=== PATIENT | male | born 1990 | race Hispanic/Latino ===

== ENCOUNTER 2017-08-03 23:00 | Inpatient (IN) | payer SELFPAY ==
[~2017-08-03 23:00] MED LIST: ISOVUE-370 76%-LOCM 1 ML ONE
[2017-08-03 23:41] LABS: #Lymphocytes 0.5 thou/uL (1.20-3.40); #Monocytes 0.7 thou/uL (0.11-0.59); #Neutrophils 4.6 thou/uL (1.40-6.50); %Basophils 0.3 % (0.0-1.0); %Eosinophils 0.1 % (0.0-10.0); %Monocytes 12.3 % (0.0-10.0); Mean Platelet Volume 7.9 fL (7.4-10.4); Red Blood Cell (RBC) Count 4.51 mill/uL (4.70-6.10); White Blood Cell (WBC) Count 5.9 thou/uL (4.8-10.8)
[2017-08-04] MEDS ORDERED: Ondansetron HCl/PF 4 MG/2 ML Vial ONE ×2
[2017-08-04] MEDS ORDERED: Ketorolac Tromethamine 30 MG/ML VIAL ONE
[2017-08-04 00:06] LABS: Lactic Acid - Sepsis 0.8 mmol/L (0.5-2.2)
[2017-08-04 00:07] LABS: ALT (SGPT) 27 U/L (8-55); AST (SGOT) 27 U/L (5-34); Alkaline Phosphatase 110 U/L (40-150); Anion Gap 12 mmol/L (10-20); BUN (Urea Nitrogen) 10 mg/dL (8.9-20.6); Bilirubin, Total 0.6 mg/dL (0.2-1.2); Calc. Creatinine Clearance 0 mL/min (70-130); Calcium 8.7 mg/dL (7.8-10.44); Carbon Dioxide 25 mmol/L (22-29); Chloride 103 mmol/L (98-107); Estimated GFR-MDRD 80; Globulin 3.4 g/dL (2.4-3.5); Protein, Total 7.5 g/dL (6.0-8.3)
[2017-08-04 00:11] LABS: CK (CPK) 166 U/L (30-200); Lipase 16 U/L (8-78)
[2017-08-04 00:14] LABS: Bilirubin Negative (Negative); Blood, Urine Moderate (Negative); Glucose, Urine (Dipstick) Negative (Negative); Ketone, Urine 40 mg/dL (Negative); Nitrite Negative (Negative); Protein, Urine (Dipstick) 30 mg/dL (Neg-Trace); Urobilinogen 0.2 mg/dL (0.2-1.0)
[2017-08-04 00:17] LABS: Bacteria/HPF None Seen HPF (None Seen)
[2017-08-04 00:22] LABS: Hyaline Casts/LPF 0-3 HYALINE CAST LPF (0-3 Hyaline); Oval Fat Bodies/HPF None Seen HPF (None Seen); Renal Epithelial None Seen HPF (0-3); Sperm/HPF None Seen HPF (None Seen); Transitional Epithelial NONE SEEN HPF (0-3); Trichomonas/HPF None Seen HPF (None Seen); Yeast-All Forms None Seen HPF (None Seen)
[2017-08-04] MEDS ORDERED: Potassium Chloride 20 MEQ TAB ONE (00:44)
[2017-08-04] MEDS ORDERED: metroNIDAZOLE 500 MG/100 ML BAG ONE (01:01)
[2017-08-04] MEDS ORDERED: Ondansetron ODT 4 MG TAB SL PRN (02:22)
[2017-08-04] MEDS ORDERED: Ondansetron HCl/PF 4 MG/2 ML Vial IVP PRN (02:22)
[2017-08-04] MEDS: D5 1/2 NS w/20 mEq KCL 1,000 ML IV SCH ×2 (02:53→07:16)
[2017-08-04 06:18] VITALS: BMI 26.3
[2017-08-04] MEDS ORDERED: Acetaminophen 325 MG TAB PO PRN (06:38)
[2017-08-04] MEDS ORDERED: Ondansetron ODT 4 MG TAB PO PRN (06:38)
[2017-08-04] MEDS ORDERED: Mag-Al 1200 mg/1200 mg/30 ML UDCUP PO PRN (06:38)
[2017-08-04] MEDS ORDERED: Calcium Carbonate 500 MG ChewTAB PO PRN (06:38)
[2017-08-04 07:12] LABS: Hematocrit 37.4 % (42.0-52.0); Mean Platelet Volume 8.2 fL (7.4-10.4); Red Blood Cell (RBC) Count 4.18 mill/uL (4.70-6.10); White Blood Cell (WBC) Count 5.2 thou/uL (4.8-10.8)
[2017-08-04] MEDS: cefTRIAXone\\ROCEPHIN 1 GM in Sodium Chloride 0.9% 100 ML IVPB SCH (07:16)
[2017-08-04] MEDS: NS 0.9% w/ 20 MEQ KCL 1,000 ML/1,000 ML BAG IV SCH ×2 (07:17→14:19)
[2017-08-04 07:28] LABS: Anion Gap 8 mmol/L (10-20); BUN (Urea Nitrogen) 8 mg/dL (8.9-20.6); Calc. Creatinine Clearance 134 mL/min (70-130); Calcium 8.1 mg/dL (7.8-10.44); Carbon Dioxide 26 mmol/L (22-29); Chloride 106 mmol/L (98-107); Estimated GFR-MDRD Greater than 90; Phosphorus 2.9 mg/dL (2.3-4.7)
[2017-08-04] MEDS: metroNIDAZOLE 500 MG in Premix Bag 1 BAG IVPB SCH ×2 (08:45→15:43)
[2017-08-04] MEDS: Pantoprazole 40 MG VIAL IVP SCH (08:46)
--- NOTE | 2017-08-04 09:09 | CT ---
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 Pt also reports dizziness, fever, n/v/d, and weakness that also started 3 days ago. Pt had surgery 4-5 years ago to r groin area but unsure what type. TECHNIQUE: Axial computed tomography images of the abdomen and pelvis with intravenous contrast. Coronal reformatted images were created and reviewed. CONTRAST: 95 mL of ISOVUE 370 administered intravenously. COMPARISON: No relevant prior studies available. FINDINGS: Lower thorax: No acute findings. ABDOMEN: Liver: There is mild hepatomegaly. There is focal fat in liver adjacent to the falciform ligament. Gallbladder and bile ducts: Unremarkable. No calcified stones. No ductal dilation. Pancreas: Unremarkable. No mass. No ductal dilation. Spleen: There is mild splenomegaly. Adrenals: Unremarkable. No mass. Kidneys and ureters: There is an 11 mm partly exophytic lesion inferior pole left kidney with possib le enhancement but incompletely characterized on this exam. May be more accurately characterized with dedicated CT or MRI renal mass protocol. No hydronephrosis. Stomach and bowel: There is diffuse wall thickening of the colon and rectum may be partly related to underdistention, but cannot exclude pancolitis and proctitis. Appendix: The appendix is unremarkable and seen best on axial image 48 of series 2. PELVIS: Bladder: Unremarkable. No mass. Reproductive: Unremarkable as visualized. ABDOMEN and PELVIS: Intraperitoneal space: Unremarkable. No free air. No significant fluid collection. Bones/joints: No acute fracture. No dislocation. Soft tissues: Unremarkable. Vasculature: Unremarkable. No abdominal aortic aneurysm. Lymph nodes: Unremarkable. No enlarged lymph nodes. IMPRESSION: 1. There is diffuse wall thickening of the colon and rectum may be partly related to underdistention , but cannot exclude pancolitis and proctitis. 2. There is an 11 mm partly exophytic lesion inferior pole left kidney with possible enhancement but incompletely characterized on this exam. May be more accurately characterized with dedicated CT or MRI renal mass protocol. Thank you for allowing us to participate in the care of your patient. Dictated and Authenticated by: Al Lindquist MD 08/04/2017 12:52 AM Central Time ([place] \T\ [place]) FINAL REPORT CT ABDOMEN AND PELVIS WITH CONTRAST: History: Right sided abdomen pain which started 3 days prior to arrival. According to prior notes, henri green has had appendix removed. FINDINGS: There is diffuse submucosal edema throughout the colon. Pancreas is visualized and is normal. There is a 4 mm mass inferior pole left kidney measuring 98 Hounsfield units which is minimally incr eased in size from 2013. No adenopathy. IMPRESSION: 1. Severe pancolitis either infectious or inflammatory. 2. Mildly increase in size of the exophytic mass of the left kidney. This may represent a low grade malignancy. A CT or MRI renal mass protocol is recommended. Code QA. POS: ALYSHA
[2017-08-04 09:28] LABS: Band 48 % (5-11); Neutrophil 16 % (42-75); Reactive Lymphocytes 2 % (0-10)
[2017-08-04] MEDS ORDERED: Morphine Sulfate 2 MG/ML SYRINGE SLOW IVP PRN (09:42)
[2017-08-04] MEDS ORDERED: metroNIDAZOLE 500 MG in Premix Bag 1 BAG IVPB SCH (10:00)
--- NOTE | 2017-08-04 10:07 | HP ---
DATE OF ADMISSION: 08/04/2017 PRIMARY CARE PHYSICIAN: None. CHIEF COMPLAINT: Abdominal discomfort with fever and chills of 3 days duration. HISTORY OF PRESENT ILLNESS: The patient is a 26-year-old male who presented to the emergen cy room with above complaints. Over the last three days, the patient developed gradual worsening of abdominal discomfort along with fever, chills, nausea, vomiting, and diarrhea. He felt generally weak, fatigued. He had several e pisodes of vomiting and diarrhea. Diarrhea was watery and nonbloody. Abdominal pain was mainly per iumbilical in area, more or less constant, associated with movement. No relieving factor reported. He denies any recent travel or sick contacts. No other family members with similar illness. His t emperature at home was 103 associated with chills. In the emergency room, his initial vital signs showed temperature 100.3, respirations 18, pulse of 8 1 with blood pressure of 118/69 with O2 saturation 97% on room air. His CT scan of the abdomen was consistent with possible colitis. He received Levaquin, Flagyl with Zofran, Toradol, IV fluids, and morphine. His potassium was 3.0 for which he received 40 mEq of oral potassium. PAST MEDICAL HISTORY: Reviewed with the patient and none. PAST SURGICAL HISTORY: Right inguinal exploration with right orchiectomy for undescended testes. ALLERGIES: No known drug allergies. CURRENT HOME MEDICATIONS: Reviewed with the patient and none. SOCIAL HISTORY: Patient currently lives at home with his family. No alcohol, tobacco or drug use r eported. FAMILY HISTORY: Negative for inflammatory bowel disease, GI malignancies or heart disease. REVIEW OF SYSTEMS: The following complete review of systems was negative, unless otherwise mentione d in the HPI or below: Constitutional: Weight loss or gain, ability to conduct usual activities. Skin: Rash, itching. Eyes: Double vision, pain. ENT/Mouth: Nose bleeding, neck stiffness, pain, tenderness. Cardiovascular: Palpitations, dyspnea on exertion, orthopnea. Respiratory: Shortness of breath, wheezing, cough, hemoptysis, fever or night sweats. Gastrointestinal: Poor appetite, abdominal pain, heartburn, nausea, vomiting, constipation, or diar major. Genitourinary: Urgency, frequency, dysuria, nocturia. Musculoskeletal: Pain, swelling. Neurologic/Psychiatric: Anxiety, depression. Allergy/Immunologic: Skin rash, bleeding tendency. PHYSICAL EXAMINATION: VITAL SIGNS: As discussed above. GENERAL: A 26-year-old male, ill appearing. HEENT: Head is atraumatic, normocephalic, sclerae are anicteric. Moist mucous membranes. No oral lesion. NECK: Supple, no JVD appreciated. No carotid bruit. LUNGS: Clear to auscultation bilaterally. HEART: S1 and S2 present. Regular rate and rhythm. No murmur, rubs, or gallops appreciated. ABDOMEN: Soft. There was diffuse tenderness mainly over the periumbilical area. There was volunta ry guarding. Bowel sounds were present. EXTREMITIES: No edema or calf tenderness. NEUROLOGIC: Grossly nonfocal, moves all four extremities. PSYCHIATRY: Alert, awake, oriented x3. SKIN: Warm and dry. LYMPH NODES: No palpable lymph nodes in the neck. PERIPHERAL VASCULAR: Radial pulses palpable bilaterally. MUSCULOSKELETAL: No joint swelling or tenderness. LABORATORY DATA AND X-RAY FINDINGS: 1. CBC showed WBC 5.9 with hemoglobin 13.8 with left shift. 2. Potassium 3.0 with BUN 10, creatinine 1.12. 3. CRP of 8.5 and lactic acid was 0.8. 4. Urinalysis showed specific gravity 1.037. 5. CT scan of the abdomen and pelvis by my review as discussed above. IMPRESSION: 1. Sepsis secondary to colitis. 2. Colitis suspected infectious. Inflammatory bowel disease appears to be less likely since his sy mptoms are acute in onset. 3. Hypokalemia. 4. An 11-mm partly exophytic lesion in the inferior pole of the left kidney. An outpatient followu p was recommended by the radiologist. 5. Dehydration. 6. Anemia, suspected chronic. 7. Generalized weakness with fatigue secondary to #1. PLAN: The patient will be monitored on the medical floor. We will replace electrolytes. Continue Flagyl. We will start him on ceftriaxone. Consult Gastroenterology. Clear liquid diet. Vitals q. 4. Orthostatics q.a.m. Patient was advised to ambulate in the hallway 3-4 times a day. DVT prophy laxis with SCDs. We will send stool sample to rule out infectious etiology. The patient will requi re 2-3 days for stabilization.
--- NOTE | 2017-08-04 12:57 | CON ---
DATE OF CONSULTATION: 08/04/2017 REFERRING PHYSICIAN: Dr. Anthony Schwarz REASON FOR CONSULTATION: Abdominal pain, nausea, vomiting and diarrhea. HISTORY OF PRESENT ILLNESS: Mr. Joshua Araya is a 26-year-old male hospitalized last night with abdominal cramping, nausea, vomiting and diarrhea. The patient's abdominal pain began 3 days ago. The pain is cramping in nature and is diffuse. He has no fever or chills. He has nausea and vomiting and with severe diarrhea. The symptoms are persistent. He came to the ER and had abd ominal CAT scan. The CAT scan shows diffuse colitis. The patient admitted to the hospital because of the above reason. The patient appears comfortable at the present time. However, he continues ab dominal cramping intermittently and also has nausea. He has had 2 episodes of vomiting today. He i s on a clear liquid diet. He has had no stool today. The patient is a very healthy young [place] male with no prior history of medical illness. There is no family history of IBD. There is n o prior history of any diarrhea, abdominal cramping, etc. The patient denies any recent travel outs [place] the country. There was no recent antibiotic intake. He has no other relevant history. At the present time, he is on morphine, pantoprazole, Zofran, levofloxacin and metronidazole. ALLERGIES: None. SOCIAL HISTORY: The patient is . He does not smoke or drink alcohol. MEDICAL ILLNESSES: None. SURGERIES: Right inguinal hernia repair in the past. FAMILY HISTORY: Unremarkable. MEDICATIONS: List reviewed. REVIEW OF SYSTEMS: Totally unremarkable except for abdominal cramping, nausea, vomiting, and diarrh ea. PHYSICAL EXAMINATION: GENERAL: The patient is thin built, appears comfortable, in no acute distress. VITAL SIGNS: His vital signs are stable. He is afebrile. Pulse is 62, blood pressure is 93/58. HEENT: Conjunctivae clear. NECK: Supple. No adenitis or thyromegaly noted. CARDIOVASCULAR: First and second heart sounds normal. LUNGS: Clear to auscultation. ABDOMEN: Soft to palpate. Abdomen is nondistended. He is predominantly tender over the right colo n area. He is also minimally tender over the epigastric area and periumbilical area. There is no r ebound or guarding. Bowel sounds normal. EXTREMITIES: Reveal no edema. LABORATORY: Shows normal CBC. He has no leukocytosis. WBC 5200, hemoglobin 13, hematocrit 37.4, M CV 18.4, platelet count is low at 71,000. His polymorphs 78, bands 48%, lymphocytes 9. Serum chemi stries show sodium 136, potassium 4.1, chloride 106, bicarbonate 26, BUN is 8, creatinine 0.8, gluco se 144, calcium 8.1, phosphorus 2.9. C-reactive protein 8.50. Abdominal CAT scan shows diffuse col itis on CAT scan. CLINICAL IMPRESSION: A 26-year-old male with abdominal cramping, nausea, vomiting an d diarrhea. The symptoms are most likely infectious colitis. He has no prior history of any diarrh eal illness. RECOMMENDATIONS: Pain medication, IV antibiotics and IV fluids. I do not see any reason for a colo noscopy, I believe his symptoms are most likely infectious colitis.
[2017-08-04] MEDS: Ondansetron HCl/PF 4 MG/2 ML Vial IVP PRN (17:08)
[2017-08-05] MEDS: NS 0.9% w/ 20 MEQ KCL 1,000 ML/1,000 ML BAG IV SCH ×4 (00:23→16:41)
[2017-08-05] MEDS: metroNIDAZOLE 500 MG in Premix Bag 1 BAG IVPB SCH ×3 (00:23→16:38)
[2017-08-05 05:49] LABS: Anion Gap 10 mmol/L (10-20); BUN (Urea Nitrogen) 4 mg/dL (8.9-20.6); Calc. Creatinine Clearance 124 mL/min (70-130); Calcium 8.3 mg/dL (7.8-10.44); Carbon Dioxide 22 mmol/L (22-29); Chloride 109 mmol/L (98-107); Estimated GFR-MDRD Greater than 90
[2017-08-05 06:40] LABS: Band 13 % (5-11); Hematocrit 39.4 % (42.0-52.0); Mean Platelet Volume 8.4 fL (7.4-10.4); Myelocyte 1 % (0-0); Neutrophil 29 % (42-75); Reactive Lymphocytes 8 % (0-10); Red Blood Cell (RBC) Count 4.29 mill/uL (4.70-6.10); White Blood Cell (WBC) Count 4.9 thou/uL (4.8-10.8)
[2017-08-05] MEDS: cefTRIAXone\\ROCEPHIN 1 GM in Sodium Chloride 0.9% 100 ML IVPB SCH (06:43)
[2017-08-05] MEDS: Pantoprazole 40 MG VIAL IVP SCH (07:54)
--- NOTE | 2017-08-05 14:12 | PRG ---
DATE OF SERVICE: 08/05/2017 HISTORY OF PRESENT ILLNESS: This is a 26-year-old male with abdominal pain, nausea, vomiting, and diarrhea. An abdominal CAT scan showed diffuse colitis. He is on IV antibiotics. He had no stool yesterday, but he only had 1 stool today. The stool was watery. He had no more nause a and no more vomiting. He is having is tolerating clear liquid diet. PHYSICAL EXAMINATION: GENERAL: Appears comfortable. VITAL SIGNS: Stable, afebrile. Pulse is 86, blood pressure 92/55. CARDIOVASCULAR: First and second heart sounds normal. LUNGS: Clear to auscultation. ABDOMEN: Soft to palpate. Abdomen is less tender compared to yesterday. There is no rebound or gu arding. RECOMMENDATION: 1. Advance diet to a regular diet later on today. 2. Continue antibiotics. 3. If he does well on regular diet without abdominal pain, nausea, and vomiting, patient can be dis charged home on antibiotics in next 24 hours.
--- NOTE | 2017-08-05 14:18 | PDOC.PN ---
- Subjective Encounter Start Date: 08/05/17 Encounter Start Time: 10:20 Subjective: diarrhea is better with only 2 stools so far from last night -: tolerating liq diet -: no nausea - Objective Resuscitation Status: Resuscitation Status FULL:Full Resuscitation MAR Reviewed: Yes Vital Signs & Weight: Vital Signs (12 hours) Temp Pulse Resp BP Pulse Ox 08/05/17 12:00 97.8 F 54 L 18 106/70 98 08/05/17 08:00 97.9 F 86 18 92/55 L 95 08/05/17 04:00 97.9 F 48 L 16 94/51 L 98 Weight Admit Weight 163 lb Weight 163 lb I&O: 08/04/17 08/05/17 08/06/17 06:59 06:59 06:59 Intake Total 1475 Balance 1475 Result Diagrams: 08/05/17 04:30 08/05/17 04:30 Phys Exam - Physical Examination HEENT: PERRLA, moist MMs Neck: no JVD, supple Respiratory: no wheezing, no rales Cardiovascular: RRR, no significant murmur Gastrointestinal: soft, non-tender, no distention, positive bowel sounds Musculoskeletal: no edema, pulses present Neurological: non-focal, moves all 4 limbs Psychiatric: A&O x 3 Dx/Plan (1) Gastroenteritis/colitis, infectious Code(s): A09 - INFECTIOUS GASTROENTERITIS AND COLITIS, UNSPECIFIED Status: Acute (2) Chronic anemia Code(s): D64.9 - ANEMIA, UNSPECIFIED Status: Chronic - Plan stool studies pending, HIV is -ve -: is on ceftriaxone and flagyl -: encourage po intake -: may advance diet per GI advice -: has left exophytic mass which has increased in size, urology opinion * . Review of Systems - Medications/Allergies Allergies/Adverse Reactions: Allergies Allergy/AdvReac Type Severity Reaction Status Date / Time No Known Allergies Allergy Verified 08/04/17 02:38 Medications: Current Medications Acetaminophen (Tylenol) 650 mg PO Q4H PRN PRN Reason: Headache/Fever or Pain Al Hydroxide/Mg Hydroxide (Maalox) 30 ml PO Q6H PRN PRN Reason: Heartburn or Indigestion Calcium Carbonate (Tums) 1,000 mg PO Q4H PRN PRN Reason: Heartburn or Indigestion Potassium Chloride/Sodium Chloride (Ns 0.9% W/ 20 Meq Kcl) 1,000 ml in 1,000 mls @ 125 mls/hr IV .Q8H REPLACED BY [facility] Last Admin: 08/05/17 02:21 Dose: 1,000 mls Ceftriaxone Sodium 1 gm/ (Sodium Chloride) 100 mls @ 200 mls/hr IVPB Q24HR REPLACED BY [facility] Last Admin: 08/05/17 06:43 Dose: 100 mls Metronidazole 500 mg/ Device 100 mls @ 100 mls/hr IVPB Q8H REPLACED BY [facility] Last Admin: 08/05/17 07:55 Dose: 100 mls Ondansetron HCl (Zofran Odt) 4 mg PO Q6H PRN PRN Reason: Nausea/Vomiting Ondansetron HCl (Zofran) 4 mg IVP Q6H PRN PRN Reason: Nausea/Vomiting Last Admin: 08/04/17 17:08 Dose: 4 mg Pantoprazole Sodium (Protonix) 40 mg IVP DAILY REPLACED BY [facility] Last Admin: 08/05/17 07:54 Dose: 40 mg Sodium Chloride (Flush - Normal Saline) 10 ml IVF Q12HR REPLACED BY [facility] Last Admin: 08/05/17 07:54 Dose: 10 ml Sodium Chloride (Flush - Normal Saline) 10 ml IVF PRN PRN PRN Reason: Saline Flush
[2017-08-05] MEDS: Morphine Sulfate 2 MG/ML SYRINGE SLOW IVP PRN (17:25)
[2017-08-05] MEDS ORDERED: Loperamide HCl 2 MG CAP PO PRN (19:13)
[2017-08-05] MEDS ORDERED: Loperamide HCl 2 MG CAP PO SCH (19:15)
--- NOTE | 2017-08-05 19:16 | PDOC.EVN ---
Event Note - Event Note Event Note: Pt continues to have diarrhea. Stool studies noted, positive for cryptosporidium antigen. Start nitazoxanide and PRN loperamide.
[2017-08-06] MEDS: metroNIDAZOLE 500 MG in Premix Bag 1 BAG IVPB SCH ×3 (00:07→16:27)
[2017-08-06] MEDS: Morphine Sulfate 2 MG/ML SYRINGE SLOW IVP PRN ×2 (06:03→13:01)
[2017-08-06] MEDS: NS 0.9% w/ 20 MEQ KCL 1,000 ML/1,000 ML BAG IV SCH ×3 (06:03→20:44)
[2017-08-06] MEDS: cefTRIAXone\\ROCEPHIN 1 GM in Sodium Chloride 0.9% 100 ML IVPB SCH (06:03)
[2017-08-06] MEDS: Pantoprazole 40 MG VIAL IVP SCH (08:01)
--- NOTE | 2017-08-06 13:27 | CON ---
DATE OF CONSULTATION: 08/06/2017 REASON FOR CONSULTATION: Left renal mass. REFERRING PHYSICIAN: Dr. Gonzalez HISTORY OF PRESENT ILLNESS: This is a 26-year-old male who was admitted to the hospital af ter presenting to the ER with abdominal discomfort, fever, chills, nausea, diarrhea. His symptoms h ad progressively been getting worse and a CT scan was performed that showed thickening of the colon and rectum, but also demonstrated an 11 mm partially exophytic left lower pole renal mass that was u nclear whether or not it enhanced. From a urinary standpoint, he denies hematuria, dysuria, frequen cy or urgency, any recent weight loss or any previous known history of the renal mass. PAST MEDICAL HISTORY: Negative. PAST SURGICAL HISTORY: Inguinal exploration with right orchiectomy for undescended testicle. ALLERGIES: No known drug allergies. CURRENT HOME MEDICATIONS: None. SOCIAL HISTORY: No alcohol, tobacco or drug use. FAMILY HISTORY: Negative. REVIEW OF SYSTEMS: CONSTITUTIONAL: He has had some fevers. Denies weight loss or weight gain. SKIN: No rash, no itching. EYES: No double vision, no blurred vision. ENT: No congestion or sore throat. CARDIOVASCULAR: No chest pain or rapid heart rate. RESPIRATORY: No cough, wheezing. GASTROINTESTINAL: He has had abdominal pain, nausea, vomiting, and diarrhea. GENITOURINARY: Denies hematuria, dysuria, frequency, urgency. MUSCULOSKELETAL: Denies back or joint pain. NEUROPSYCHIATRIC: Denies anxiety, depression. PHYSICAL EXAMINATION: VITAL SIGNS: Blood pressure 96/59, 98% on room air, respirations 18, pulse 53, temperature 97.9. GENERAL: Alert, in no acute distress. RESPIRATORY: Unlabored respirations. HEAD/NECK: Normocephalic, atraumatic. NECK: No cervical adenopathy. HEART: Regular rate. Benign rest of the exam. LABORATORY DATA: Reviewed. His urine did have some red blood cells and blood in it, but it is also contaminated by squamous epithelial cells. His cryptosporidium was positive. His CT scan was revi ewed and there is an 11 mm exophytic mass, but is unclear whether or not it enhances, it is on the l eft side. ASSESSMENT AND PLAN: Left exophytic renal mass, difficult to characterize. We will get an MRI to f christinther characterize and assess for concern for renal malignancy. Other care per the primary team. ADDENDUM: His MRI has come back and it is suggestive of a hyperdense hemorrhagic cyst and he can follow up on a p.r.n. basis.
--- NOTE | 2017-08-06 13:50 | MRI ---
MRI OF THE ABDOMEN WITHOUT AND WITH CONTRAST: COMPARISON: CT abdomen/pelvis 08/04/17. HISTORY: Left renal lesion seen on prior CT. The patient has a history of right-sided abdominal pain. TECHNIQUE: Multiplanar, multisequence MR images were obtained in the abdomen without and with IV contrast. FINDINGS: There is a 1.1 cm exophytic lesion emanating from the mid portion of the left kidney. This demonstr ates low T2 signal and high T1 signal. No significant enhancement is seen after the administration of contrast when looking at the subtraction images and this is consistent with a hemorrhagic/hyperde nse cyst. This corresponds to the Hounsfield unit value on CT of a hyperdense cyst. No suspicious enhancement is seen of this lesion. The liver, gallbladder, right kidney, adrenal glands, spleen, and pancreas are unremarkable. No abdominal adenopathy is seen. No marrow signal abnormality is present. IMPRESSION: Left renal lesion represents a hyperdense/hemorrhagic cyst. POS: H
--- NOTE | 2017-08-06 15:24 | PDOC.PN ---
- Subjective Encounter Start Date: 08/06/17 Encounter Start Time: 11:20 Subjective: c/o rlq abd pain -: no nausea, had 3 bm's from last night, watery, no mucous or blood - Objective Resuscitation Status: Resuscitation Status FULL:Full Resuscitation MAR Reviewed: Yes Vital Signs & Weight: Vital Signs (12 hours) Temp Pulse Resp BP Pulse Ox 08/06/17 08:00 97.9 F 53 L 18 96/59 L 98 Weight Admit Weight 163 lb Weight 163 lb I&O: 08/05/17 08/06/17 08/07/17 06:59 06:59 06:59 Intake Total 1475 1775 960 Balance 1475 1775 960 Result Diagrams: 08/05/17 04:30 08/05/17 04:30 Phys Exam - Physical Examination HEENT: PERRLA, moist MMs Neck: no JVD, supple Respiratory: no wheezing, no rales Cardiovascular: RRR, no significant murmur Gastrointestinal: soft, no distention, positive bowel sounds rlq tenderness, no guarding or rigidity Musculoskeletal: no edema, pulses present Neurological: non-focal, moves all 4 limbs Psychiatric: A&O x 3 Dx/Plan (1) Gastroenteritis/colitis, infectious Code(s): A09 - INFECTIOUS GASTROENTERITIS AND COLITIS, UNSPECIFIED Status: Acute (2) Chronic anemia Code(s): D64.9 - ANEMIA, UNSPECIFIED Status: Chronic - Plan rlq pain, ct with contrast on admission showed normal appendix -: d/w , will evaluate pt, has bowel thickening in rectum and left col -: MRI abd shows hemorrhagic cyst on left kidney -: is on alinia for cryptosporidium diarrhea -: no other family member has diarrhea * . Review of Systems - Medications/Allergies Allergies/Adverse Reactions: Allergies Allergy/AdvReac Type Severity Reaction Status Date / Time No Known Allergies Allergy Verified 08/04/17 02:38 Medications: Current Medications Acetaminophen (Tylenol) 650 mg PO Q4H PRN PRN Reason: Headache/Fever or Pain Al Hydroxide/Mg Hydroxide (Maalox) 30 ml PO Q6H PRN PRN Reason: Heartburn or Indigestion Calcium Carbonate (Tums) 1,000 mg PO Q4H PRN PRN Reason: Heartburn or Indigestion Potassium Chloride/Sodium Chloride (Ns 0.9% W/ 20 Meq Kcl) 1,000 ml in 1,000 mls @ 125 mls/hr IV .Q8H [facility] Last Admin: 08/06/17 06:03 Dose: 1,000 mls Metronidazole 500 mg/ Device 100 mls @ 100 mls/hr IVPB Q8H [facility] Last Admin: 08/06/17 08:01 Dose: 100 mls Ceftriaxone Sodium 1 gm/ (Sodium Chloride) 100 mls @ 200 mls/hr IVPB 0600 GURDEEP Loperamide HCl (Imodium) 2 mg PO PRN PRN PRN Reason: Diarrhea/Loose Stools Morphine Sulfate (Morphine Sulfate) 2 mg SLOW IVP Q4H PRN PRN Reason: Pain Last Admin: 08/06/17 13:01 Dose: 2 mg Nitazoxanide (Alinia) 500 mg PO BID [facility] Last Admin: 08/06/17 08:09 Dose: 500 mg Ondansetron HCl (Zofran Odt) 4 mg PO Q6H PRN PRN Reason: Nausea/Vomiting Ondansetron HCl (Zofran) 4 mg IVP Q6H PRN PRN Reason: Nausea/Vomiting Last Admin: 08/04/17 17:08 Dose: 4 mg Pantoprazole Sodium (Protonix) 40 mg IVP DAILY [facility] Last Admin: 08/06/17 08:01 Dose: 40 mg Sodium Chloride (Flush - Normal Saline) 10 ml IVF Q12HR [facility] Last Admin: 08/06/17 08:01 Dose: 10 ml Sodium Chloride (Flush - Normal Saline) 10 ml IVF PRN PRN PRN Reason: Saline Flush
--- NOTE | 2017-08-06 18:23 | CON ---
DATE OF CONSULTATION: 08/06/2017 REQUESTING PHYSICIAN: Jose Gonzalez MD HISTORY OF PRESENT ILLNESS: This is a 26-year-old young man who was admitted 2 days previo usly with a 3-day history of worsening abdominal pain. Pain was described as sharp and associated w ith multiple episodes of nausea, emesis, and diarrhea. The patient described generalized weakness a nd muscle aches prior to the onset of abdominal pain. At the onset, the pain was rated at 7/10. On admission, 2 days ago, the pain had progressed to 10/10. The patient reports the pain today at 6/1 0. He tolerates oral intake. He has had no nausea or vomiting over the last 2 days. He had 2 loos e bowel movements yesterday. He denies any hematochezia or melena. He denies any unexplained weigh t loss. He denies any fevers or chills. PAST MEDICAL HISTORY: Denies any previous medical problems. PAST SURGICAL HISTORY: Pertinent for right inguinal exploration with right orchiectomy for undescen ded testes. SOCIAL HISTORY: He is and lives at home with his . He is employed in the construction business as a manual labor. He denies any cigarette smoking, ethanol, or illicit drug abuse. FAMILY HISTORY: He denies any family history of diabetes mellitus, hypertension, heart disease, gas trointestinal disorders including inflammatory bowel disease. PREHOSPITALIZATION MEDICATIONS: None. ALLERGIES: Patient denies any known drug allergies. REVIEW OF SYSTEMS: Ten point review of systems essentially unremarkable except for as stated in pas t medical history and chief complaint. PHYSICAL EXAMINATION: GENERAL: This reveals a 26-year-old normally developed young man who is otherwise coherent and inte ractive and appears stated age. The patient is alert and oriented x3, appears to be in no significa nt acute distress at the time of my evaluation. VITAL SIGNS: Currently includes blood pressure 96/59, pulse is 53, respiratory rate is 18, temperat ure is 97.9 degrees Fahrenheit. Oxygen saturation is 98% on room air. HEENT: Reveals normocephalic and atraumatic. Pupils are equal, round, and reactive to light and ac commodation. He has no sclerae icterus present. HEART: Reveals regular rate and rhythm. No murmurs or gallops auscultated. LUNGS: Clear to auscultation bilaterally. Breathing is regular and unlabored. ABDOMEN: Soft and nondistended. He has right-sided abdominal tenderness to palpation with no rebou nd tenderness present. Liver and spleen are nonpalpable below costal margins. EXTREMITIES: Reveals 2+ radial and pedal pulses bilaterally. No ankle edema is present. NEUROLOGIC: Reveals no focal deficits present. PERTINENT DIAGNOSTIC DATA: I personally reviewed a CT scan of the abdomen and pelvis which was obta ined on 08/03/2017. This is remarkable for diffuse colonic wall thickening extended into the rectum . There is no free fluid or pneumoperitoneum present. A normal appendix is visualized. PERTINENT LABORATORY FINDINGS: Today, includes CBC from 08/05/2017 with 4900 white blood cells, hem oglobin 13.1, hematocrit is 39.4, platelet count is 188,000. The differential counts as follows, 29 % segmented neutrophils, 13 bands, 14 lymphocytes, 5 monocytes, and 8 reactive lymphocytes. Metabol ic profile from yesterday as well includes sodium 137, potassium is 3.8, chloride is 109, bicarbonat e 22, BUN 4, creatinine is 0.95, glucose is 98. All stool studies negative except for positive cryp tosporidium antigen. 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 RECOMMENDATIONS: 1. Continue with current medical management. 2. There clearly is no acute surgical indication for this patient. 3. General Surgery will sign off and re-evaluate the patient on demand. Thank you again, Dr. Gonzalez, for allowing me the opportunity to participate in the care of this patient.
[2017-08-06] MEDS: Ondansetron HCl/PF 4 MG/2 ML Vial IVP PRN (20:14)
--- NOTE | 2017-08-06 21:42 | PRG ---
DATE OF SERVICE: 08/06/2017 HISTORY OF PRESENT ILLNESS: This is a 26-year-old male hospitalized with abdominal c ramping, nausea, vomiting, and diarrhea. The CAT scan showed diffuse colitis. The stool cultures h ave been negative. However, the stool today came back showing cryptosporidium antigen positive. Th e patient's symptoms are markedly improved. His diarrhea has come down. He has had one stool today . The stool remains watery. There is no nausea, vomiting. He has abdominal pain off and on. PHYSICAL EXAMINATION: GENERAL: He appears very comfortable. He is very strike. VITAL SIGNS: Stable, afebrile. Pulse is 53, blood pressure 96/59. CARDIOVASCULAR SYSTEM/LUNGS: Within normal limits. ABDOMEN: Soft to palpate. No organomegaly. He is minimally tender over the right side of the abdo men. Overall, the exam is very benign. Compared to two days ago, his abdomen is markedly soft and less tender. LABORATORY DATA: The stool shows cryptosporidium antigen positive, though the stool culture was neg ative for C. difficile and other E. coli etc., The patient was tolerating regular diet since last n ight. RECOMMENDATIONS: 1. Continue diet as tolerated. 2. Start patient on Alinia randomly on p.o. twice a day for 3 days. 3. From a GI standpoint, the patient can be discharged home hopefully tomorrow. I will sign off fr om today.
[2017-08-07] MEDS: NS 0.9% w/ 20 MEQ KCL 1,000 ML/1,000 ML BAG IV SCH ×2 (05:03→13:50)
[2017-08-07] MEDS ORDERED: cefTRIAXone\\ROCEPHIN 1 GM in Sodium Chloride 0.9% 100 ML IVPB SCH (06:00)
[2017-08-07 15:04] VITALS: BP 93/62; TEMP 97.9
--- NOTE | 2017-08-07 15:33 | PDOC.PN ---
- Subjective Encounter Start Date: 08/07/17 Encounter Start Time: 07:00 Subjective: feels better, diarrhea freq is down -: no nausea, is eating better - Objective Resuscitation Status: Resuscitation Status FULL:Full Resuscitation MAR Reviewed: Yes Vital Signs & Weight: Vital Signs (12 hours) Temp Pulse Resp BP BP BP Pulse Ox 08/07/17 15:03 97.9 F 63 20 93/62 97 08/07/17 08:00 97.8 F 51 L 16 93/56 L 98 08/07/17 05:10 64 97/62 08/07/17 05:05 62 95/54 L 08/07/17 05:00 62 91/52 L Weight Admit Weight 163 lb Weight 163 lb I&O: 08/06/17 08/07/17 08/08/17 06:59 06:59 06:59 Intake Total 1775 2960 Balance 1775 2960 Result Diagrams: 08/05/17 04:30 08/05/17 04:30 Phys Exam - Physical Examination HEENT: PERRLA, moist MMs Neck: no JVD, supple Respiratory: no wheezing, no rales Cardiovascular: RRR, no significant murmur Gastrointestinal: soft, no distention, positive bowel sounds Musculoskeletal: no edema, pulses present Neurological: non-focal, moves all 4 limbs Psychiatric: A&O x 3 Dx/Plan (1) Gastroenteritis/colitis, infectious Code(s): A09 - INFECTIOUS GASTROENTERITIS AND COLITIS, UNSPECIFIED Status: Acute Comment: sec to crytosporidium (2) Chronic anemia Code(s): D64.9 - ANEMIA, UNSPECIFIED Status: Chronic - Plan hemostable -: dc pt home -: CM for help with Alinia 4 doses * .
--- NOTE | 2017-08-07 20:36 | DIS ---
DATE OF ADMISSION: 08/04/2017 DATE OF DISCHARGE: 08/07/2017 DISCHARGE DISPOSITION: To home. PRIMARY DISCHARGE DIAGNOSES: Gastroenteritis with colitis secondary to cryptosporidium, chronic ane rajni. PROCEDURES DONE DURING HOSPITALIZATION: The patient has had abdominal and pelvic CAT scan done on t he day of admission, which showed diffuse wall thickening of the colon and rectum. There was an 11 mm partly exophytic lesion in the inferior pole of left kidney with possible enhancement. This also showed a mild increase in size when compared to prior and also there was suspicion for low grade ma lignancy in the exophytic mass. The patient has had abdominal MRI done on 08/06/2017, which showed the left renal lesion to be hyperdense/ hemorrhagic cyst. Stool cultures done was negative for Camp ylobacter, negative for E. coli Shiga 1 and Shiga 2 toxin with elevated fecal lactoferrin. The jcarlos ent was positive for cryptosporidium antigen and negative for Giardia antigen. CRP was 8.50, HIV 1 and 2 nonreactive. DISCHARGE MEDICATIONS: Bentyl 20 mg p.o. 4 times daily p.r.n. for abdominal colic, Alinia 500 mg p. o. twice daily for another 2 days. ALLERGIES: No known drug allergies. INPATIENT CONSULTS: Dr. Parisi for Gastroenterology, Dr. Crabtree for Urology. BRIEF COURSE DURING HOSPITALIZATION: The patient initially got admitted for complaints of abdominal pain, fever, chills, and severe diarrhea. He has had abdominal and pelvic CAT scan done on the day of admission, which showed possible pancolitis. The patient has had multiple stool studies done, w hich all come back negative except for cryptosporidium antigen. In view of severe pancolitis and marla field's clinical symptoms, patient was treated for the same with Alinia. He has had consultation [facility] offset plate maker, Dr. Parisi. The initial CAT scan also showed a left kidney exophytic mass , which the radiologist suspected for possible malignancy. In view of this, abdominal MRI was obtai mayank and a urology consultation with Dr. Crabtree. The MRI revealed this to be a hemorrhagic cyst. H is stool frequency is coming down. His HIV test was negative. The patient is tolerating oral solid food. He will be shortly discharged home on Alinia for another 2 days. He was otherwise hemodynam ically stable and will be shortly discharged home. Please see a [id number] documentation on [facility] for the day of discharge.
== END 2017-08-07 15:55 | disposition home or self-care (01) | DRG 872 ==
LOC: ERS 23:00 → T4-A 08-04 00:56
PROVIDERS: ADMIT Internal Medicine; ATTEND Internal Medicine
DX: A41.89 Other specified sepsis (principal); A09 Infectious gastroenteritis and colitis, unspecified; E87.6 Hypokalemia; E86.0 Dehydration; D64.9 Anemia, unspecified; N28.9 Disorder of kidney and ureter, unspecified
CPT/HCPCS: 36415; 74177; 74183; 80048; 80053; 81003; 81015; 82550; 83605; 83630; 83690; 83735; 84100; 85025; 85060; 85652; 86140; 87015; 87045; 87046; 87081; 87324; 87389; 87449; 87899; 93005; 96361; 96365; 96368; 96375; A4216; C9113; J0696; J1885; J1956; J2270; J2405; J7050

== ENCOUNTER 2018-12-10 19:13 | Emergency (ER) | payer SELFPAY | END 2018-12-10 20:30 | disposition home or self-care (01) | LOC: ERS 19:13 | DX: J02.9 Acute pharyngitis, unspecified (principal) | CPT/HCPCS: 87081; 87430; 99283 ==

== ENCOUNTER 2020-04-14 23:10 | Emergency (ER) | payer SELFPAY ==
[2020-04-15 00:32] LABS: #Basophils 0.1 thou/uL (0.0-0.2); #Eosinphils 0.1 thou/uL (0.0-0.7); #Lymphocytes 2.4 thou/uL (1.20-3.40); #Monocytes 0.4 thou/uL (0.11-0.59); #Neutrophils 2.4 thou/uL (1.40-6.50); %Basophils 0.9 % (0.0-1.0); %Eosinophils 1.7 % (0.0-10.0); %Lymphocytes 45.4 % (21.0-51.0); %Monocytes 7.3 % (0.0-10.0); %Neutrophils 44.7 % (42.0-75.0); Hemoglobin 14.9 g/dL (14.0-18.0); Mean Corpuscular HGB CONC 36.3 g/dL (32.0-36.0); Mean Corpuscular Hemoglobin 31.7 pg (27.0-31.0); Mean Corpuscular Volume 87.2 fL (78.0-98.0); Mean Platelet Volume 8.9 fL (7.4-10.4); Platelet Count 180 thou/uL (130-400); RBC Distribution Width 11.3 % (11.5-14.5); Red Blood Cell (RBC) Count 4.71 mill/uL (4.70-6.10); White Blood Cell (WBC) Count 5.4 thou/uL (4.8-10.8)
[2020-04-15 00:53] LABS: ALT (SGPT) 43 U/L (8-55); AST (SGOT) 43 U/L (5-34); Albumin 4.7 g/dL (3.5-5.0); Alkaline Phosphatase 166 U/L (40-110); Anion Gap 16 mmol/L (10-20); BUN (Urea Nitrogen) 17 mg/dL (8.9-20.6); Bilirubin, Total 0.2 mg/dL (0.2-1.2); Calc. Creatinine Clearance 0 mL/min (70-130); Calcium 8.9 mg/dL (7.8-10.44); Carbon Dioxide 22 mmol/L (22-29); Chloride 104 mmol/L (98-107); Estimated GFR-MDRD 75; Globulin 4.4 g/dL (2.4-3.5); Glucose 82 mg/dL (70-105); Lipase 54 U/L (8-78); Potassium 3.5 mmol/L (3.5-5.1); Protein, Total 9.1 g/dL (6.0-8.3); Sodium 138 mmol/L (136-145)
[2020-04-15] MEDS ORDERED: Mag-Al 1200 mg/1200 mg/30 ML UDCUP ONE (01:27)
[2020-04-15] MEDS ORDERED: Lidocaine Viscous Sol 2% 15 ml UD Cup ONE (01:27)
[2020-04-15 01:59] LABS: Bilirubin Negative (Negative); Blood, Urine Negative (Negative); Clarity Clear (Clear); Glucose, Urine (Dipstick) Normal (Negative); Leukocyte Negative Leu/uL (Negative); Nitrite Negative (Negative); Protein, Urine (Dipstick) 10 mg/dL (Neg-Trace); Urobilinogen 3 mg/dL (Less than 2)
--- NOTE | 2020-04-15 07:01 | CT ---
PRELIMINARY REPORT/[facility]/AFTER HOURS PROCEDURE Receipt of this report by the clinical staff was confirmed with Negin Coleman Np by Inez Pitts on Apr 15, 2020 00:57:00 CDT. Addendum electronically signed by Inez Pitts on April 15, 2020 12:58:[address] ABDOMEN AND PELVIS WITH INTRAVENOUS CONTRAST: CLINICAL HISTORY: Abd pain started Thursday. Only able to tolerate clear liquids. TECHNIQUE: Axial computed tomography images of the abdomen and pelvis with intravenous contrast. CONTRAST: With Isovue-370 100 mL, COMPARISON: None provided. FINDINGS LUNG BASES: No basilar airspace consolidation or pleural effusion. LIVER: Unremarkable. GALLBLADDER AND BILE DUCTS: Unremarkable. No calcified stone. No ductal dilation. PANCREAS: Unremarkable. SPLEEN: Unremarkable. ADRENAL GLANDS: Unremarkable. KIDNEYS, URETERS, AND BLADDER: There is a hyperattenuating 1.6 cm exophytic mass extending off of the inferior pole of the left kidney. Kidneys are otherwise unremarkable. No stones identified within ei ther ureter or bladder. STOMACH AND BOWEL: Stomach is distended with ingested content. No abnormal bowel wall thickening or e vidence of obstruction. APPENDIX: No CT evidence for appendicitis. PERITONEUM: No free fluid. No free air. LYMPH NODES: No lymphadenopathy. REPRODUCTIVE: Unremarkable as visualized. VASCULATURE: No aortic aneurysm. BONES: No fracture or suspicious osseous abnormality. ABDOMINAL WALL AND SOFT TISSUES: Unremarkable. IMPRESSION: 1. No acute intra-abdominal or pelvic abnormality. 2. Hyperattenuating exophytic 1.6 cm mass/cyst at the inferior pole left kidney. Recommend further evaluation with multiphase renal CT for further evaluation. ELECTRONICALLY SIGNED BY: Yann Howard DO Apr 15, 2020 12:52:11 AM CDT This report is intended for review by the ordering physician only, in accordance of law. If you recei ve this report in error, please call [facility] at [phone]. FINAL REPORT EMERGENT AFTER HOURS CT ABDOMEN AND PELVIS WITH CONTRAST: COMPARISON: 08/04/17 09/01/13 FINDINGS/IMPRESSION: I agree with the findings and impression given in the preliminary report per the [facility] phy sician. 1. No evidence of acute intra-abdominal/pelvic abnormality. 2. There is a stable hypodensity emanating from the left kidney. This has been stable since 2012 and likely represents a hyperdense cyst. No further followup of this lesion is necessary. CODE QA POS: EAA
== END 2020-04-15 02:59 | disposition home or self-care (01) ==
LOC: ERS 23:10
DX: R10.13 Epigastric pain (principal)
CPT/HCPCS: 74177; 80053; 81003; 83690; 85025